=== PATIENT | female | born 1980 | race Hispanic/Latino ===

== ENCOUNTER 2018-08-27 16:13 | Emergency (ER) | payer MEDICARE ==
[2018-08-27 17:44] LABS: APPEARANCE,URINE CLOUDY (CLEAR); BILIRUBIN,URINE NEGATIVE (NEGATIVE); COLOR,URINE ORANGE (YELLOW); GLUCOSE, URINE (UA) NEGATIVE (NEGATIVE); KETONES,URINE NEGATIVE (NEGATIVE); LEUKOCYTE ESTERASE ,URINE TRACE (NEGATIVE); NITRATE,URINE NEGATIVE (NEGATIVE); OCCULT BLOOD,URINE LARGE (NEGATIVE); PROTEIN,URINE TRACE (NEGATIVE); UROBILINOGEN,URINE 0.2 mg/dL (0.2-1.0)
[2018-08-27 18:38] LABS: HCG,QUAL RESULT NEGATIVE (NEGATIVE)
[2018-08-27 18:59] LABS: BACTERIA,URINE Rare /HPF (None Seen); RBC,URINE TNTC /HPF (0-1); SQUAMOUS EPITHELIAL CELL,UR Few /HPF (0-2)
== END 2018-08-27 19:05 | disposition home or self-care (01) ==
LOC: EDH 16:13
DX: L02.416 Cutaneous abscess of left lower limb (principal); L03.116 Cellulitis of left lower limb
CPT/HCPCS: 81001; 81025

== ENCOUNTER 2019-02-08 00:53 | Emergency (ER) | payer MEDICARE ==
[2019-02-08 01:25] LABS: BASOPHILS % (AUTO) 0.4 % (0.0-5.0); BILIRUBIN,URINE Negative (NEGATIVE); COLOR,URINE Yellow (YELLOW); EOSINOPHILS % (AUTO) 2.8 % (0.0-8.0); GLUCOSE, URINE (UA) Negative (NEGATIVE); HEMATOCRIT 39.9 % (36-48); KETONES,URINE Negative (NEGATIVE); LEUKOCYTE ESTERASE ,URINE Negative (NEGATIVE); MEAN CORPUSCULAR HGB CONC 32.6 g/dL (32.0-36.0); MONOCYTES % (AUTO) 6.7 % (3.0-13.0); NEUTROPHILS % (AUTO) 67.1 % (40.0-77.0); NITRATE,URINE Negative (NEGATIVE); NUCLEATED RED BLOOD CELLS 0.1 % (0.0-0.19); OCCULT BLOOD,URINE Negative (NEGATIVE); PLATELET COUNT (AUTO) 248 K/uL (130-400); PROTEIN,URINE Negative (NEGATIVE); RED BLOOD CELL COUNT(AUTO) 4.64 MIL/uL (4.00-5.50); RED CELL DISTRIBUTION WIDTH 14.2 % (11.0-15.5); WHITE BLOOD COUNT (AUTO) 8.1 K/uL (4.8-10.8)
[2019-02-08 01:26] LABS: APPEARANCE,URINE CLEAR (CLEAR)
[2019-02-08 01:27] LABS: HCG,QUAL RESULT NEGATIVE (NEGATIVE)
[2019-02-08] MEDS ORDERED: ONDANSETRON HCL 4 MG/2 ML VIAL ONE (01:39)
[2019-02-08] MEDS ORDERED: KETOROLAC TROMETHAMINE 30MG/ML ONE (01:40)
[2019-02-08] MEDS ORDERED: SODIUM CHLORIDE 0.9% 1000ML 1,000 ML IV ONE (01:40)
[2019-02-08 01:50] LABS: AMPHET/METH SCREEN,URINE NEGATIVE (NEGATIVE); BARBITURATE SCREEN, URINE NEGATIVE (NEGATIVE); BENZODIAZEPINES SCREEN,URINE NEGATIVE (NEGATIVE); CANNABINOID SCREEN,URINE NEGATIVE (NEGATIVE); COCAINE SCREEN,URINE NEGATIVE (NEGATIVE); OPIATE SCREEN,URINE NEGATIVE (NEGATIVE); PHENCYCLIDINE SCREEN,URINE NEGATIVE (NEGATIVE)
[2019-02-08 02:01] LABS: CREATININE 0.8 mg/dL (0.5-1.5); POTASSIUM 4.5 mmol/L (3.5-5.1)
[2019-02-08 02:06] LABS: ALBUMIN 3.4 g/dL (3.5-5.0); BILIRUBIN,TOTAL 0.3 mg/dL (0.2-1.0); TOTAL PROTEIN, SERUM 7.8 g/dL (6.0-8.3)
== END 2019-02-08 04:27 | disposition home or self-care (01) ==
LOC: EDH 00:53
DX: K29.00 Acute gastritis without bleeding (principal); F31.9 Bipolar disorder, unspecified; Z98.51 Tubal ligation status
CPT/HCPCS: 36415; 76705; 80053; 80305; 81003; 81025; 83690; 85025; 96361; 96374; 96375; 99285; J1885; J2405; J7030

== ENCOUNTER 2019-05-13 05:30 | Emergency (ER) | payer MEDICARE ==
[2019-05-13] MEDS ORDERED: LIDOCAINE HCL 2% VISCOUS 15 ML UDCUP ONE (06:07)
[2019-05-13] MEDS ORDERED: MAG HYDROX/AL HYDROX/SIMETH ES 30 ML SUSP UDCUP ONE (06:08)
[2019-05-13] MEDS ORDERED: KETOROLAC TROMETHAMINE 60 MG/2 ML VIAL ONE (06:08)
[2019-05-13] MEDS ORDERED: DEXAMETHASONE 4 MG TAB ONE (06:08)
[2019-05-13] MEDS ORDERED: ALBUTEROL SULFATE 0.083% 2.5 MG/3 ML INH IH ONE (06:14)
[2019-05-13] MEDS ORDERED: AZITHROMYCIN 250 MG TABLET PO ONE (07:18)
== END 2019-05-13 07:59 | disposition home or self-care (01) ==
LOC: EDH 05:30
DX: J20.9 Acute bronchitis, unspecified (principal); F31.9 Bipolar disorder, unspecified; E28.2 Polycystic ovarian syndrome; G47.30 Sleep apnea, unspecified; Z98.51 Tubal ligation status
CPT/HCPCS: 71046; 87804 ×2; 94640; 96372; 99285; J1885; J8540

== ENCOUNTER 2019-06-20 20:28 | Emergency (ER) | payer MEDICARE ==
[2019-06-20] MEDS ORDERED: ACETAMINOPHEN EXTRA STRENGTH 500 MG TABLET ONE (21:15)
[2019-06-20] MEDS ORDERED: SODIUM CHLORIDE 0.9% 1000ML 1,000 ML IV ONE (21:16)
[2019-06-20 21:21] LABS: BASOPHILS % (AUTO) 0.3 % (0.0-5.0); EOSINOPHILS % (AUTO) 1.7 % (0.0-8.0); HEMATOCRIT 37.6 % (36-48); LYMPHOCYTES % (AUTO) 20.6 % (21.0-51.0); MEAN CORPUSCULAR HEMOGLOBIN 27.9 pg (27.0-33.0); MEAN CORPUSCULAR HGB CONC 31.1 g/dL (32.0-36.0); MEAN CORPUSCULAR VOLUME 89.5 fL (79-99); NEUTROPHILS % (AUTO) 70.2 % (40.0-77.0); PLATELET COUNT (AUTO) 291 K/uL (130-400); RED CELL DISTRIBUTION WIDTH 13.2 % (11.0-15.5); WHITE BLOOD COUNT (AUTO) 9.2 K/uL (4.8-10.8)
[2019-06-20 21:30] LABS: CREATININE 0.9 mg/dL (0.5-1.5); POTASSIUM 3.7 mmol/L (3.5-5.1)
[2019-06-20 21:33] LABS: INR 0.97 (0.85-1.15); PARTIAL THROMBOPLASTIN TIME 27.5 SEC (26.3-35.5); PROTHROMBIN TIME 10.2 SEC (9.6-11.6)
[2019-06-20 21:35] LABS: ALBUMIN 3.3 g/dL (3.5-5.0); BILIRUBIN,TOTAL 0.2 mg/dL (0.2-1.0); TOTAL PROTEIN, SERUM 6.8 g/dL (6.0-8.3)
[2019-06-21] MEDS ORDERED: LIDOCAINE HCL-MPF 1% 2ML VIAL ONE (00:29)
[2019-06-21] MEDS ORDERED: CEFTRIAXONE SODIUM 500 MG VIAL ONE (00:29)
[2019-06-21] MEDS ORDERED: ONDANSETRON 4 MG TABLET ONE (00:29)
[2019-06-21] MEDS ORDERED: AZITHROMYCIN 250 MG TABLET PO ONE (00:30)
== END 2019-06-21 00:44 | disposition home or self-care (01) ==
LOC: EDH 20:28
DX: N93.9 Abnormal uterine and vaginal bleeding, unspecified (principal); F31.9 Bipolar disorder, unspecified; G47.30 Sleep apnea, unspecified; Z98.890 Other specified postprocedural states; E28.2 Polycystic ovarian syndrome
CPT/HCPCS: 36415; 76856; 80053; 81025; 85025; 85610; 85730; 96372; 99285; J0696; J3490; J7030; Q0162

== ENCOUNTER 2019-06-30 19:13 | Emergency (ER) | payer MEDICARE ==
[2019-06-30] MEDS ORDERED: ONDANSETRON HCL 4 MG/2 ML VIAL ONE (19:53)
[2019-06-30] MEDS ORDERED: SODIUM CHLORIDE 0.9% 1000ML 1,000 ML IV ONE (19:54)
[2019-06-30 20:15] LABS: BASOPHILS % (AUTO) 0.4 % (0.0-5.0); EOSINOPHILS % (AUTO) 2.2 % (0.0-8.0); HEMATOCRIT 39.3 % (36-48); LYMPHOCYTES % (AUTO) 17.9 % (21.0-51.0); MEAN CORPUSCULAR HEMOGLOBIN 27.9 pg (27.0-33.0); MEAN CORPUSCULAR HGB CONC 30.8 g/dL (32.0-36.0); MEAN CORPUSCULAR VOLUME 90.6 fL (79-99); MONOCYTES % (AUTO) 6.3 % (3.0-13.0); PLATELET COUNT (AUTO) 247 K/uL (130-400); RED BLOOD CELL COUNT(AUTO) 4.34 MIL/uL (4.00-5.50); WHITE BLOOD COUNT (AUTO) 8.1 K/uL (4.8-10.8)
[2019-06-30 20:28] LABS: CREATININE 0.8 mg/dL (0.5-1.5); POTASSIUM 4.1 mmol/L (3.5-5.1)
[2019-06-30 20:31] LABS: APPEARANCE,URINE Clear (CLEAR); BILIRUBIN,URINE Negative (NEGATIVE); COLOR,URINE Yellow (YELLOW); GLUCOSE, URINE (UA) Negative (NEGATIVE); KETONES,URINE Negative (NEGATIVE); LEUKOCYTE ESTERASE ,URINE Negative (NEGATIVE); NITRATE,URINE Negative (NEGATIVE); OCCULT BLOOD,URINE Negative (NEGATIVE); PROTEIN,URINE Negative (NEGATIVE); UROBILINOGEN,URINE 0.2 mg/dL (0.2-1.0)
[2019-06-30 20:32] LABS: ALBUMIN 3.3 g/dL (3.5-5.0); BILIRUBIN,TOTAL 0.3 mg/dL (0.2-1.0); TOTAL PROTEIN, SERUM 7.2 g/dL (6.0-8.3)
== END 2019-06-30 22:23 | disposition home or self-care (01) ==
LOC: EDH 19:13
DX: N83.299 Other ovarian cyst, unspecified side (principal); F31.9 Bipolar disorder, unspecified; G47.30 Sleep apnea, unspecified; Z98.890 Other specified postprocedural states
CPT/HCPCS: 36415; 76830; 80053; 81003; 81025; 83690; 84484; 85025; 87210; 87486; 87797; 93005; 96374; 99285; J2405; J7030

== ENCOUNTER → 2020-04-06 | Outpatient (CLI) | payer OTHER, MEDICARE | END | disposition home or self-care (01) | LOC: SHCH 10:00 | PROVIDERS: ATTEND Internal Medicine Cardiovascular Disease | DX: I87.2 Venous insufficiency (chronic) (peripheral) (principal); K21.9 Gastro-esophageal reflux disease without esophagitis | CPT/HCPCS: 93970 ==

== ENCOUNTER → 2020-04-26 | Outpatient (CLI) | payer OTHER, MEDICARE | END | disposition home or self-care (01) | LOC: RAH 11:33 | PROVIDERS: ATTEND Podiatrist | DX: M65.871 Other synovitis and tenosynovitis, right ankle and foot (principal); M65.872 Other synovitis and tenosynovitis, left ankle and foot; M65.9 Synovitis and tenosynovitis, unspecified | CPT/HCPCS: 73630 ==

== ENCOUNTER → 2020-05-08 | Outpatient (CLI) | payer OTHER, MEDICARE | END | disposition home or self-care (01) | LOC: SHCH 11:30 | PROVIDERS: ATTEND Internal Medicine Cardiovascular Disease | DX: I87.2 Venous insufficiency (chronic) (peripheral) (principal); Z09 Encounter for follow-up examination after completed treatment for conditions other than malignant neoplasm | CPT/HCPCS: 93971 ==

== ENCOUNTER → 2020-05-15 | Outpatient (CLI) | payer OTHER, MEDICARE | END | disposition home or self-care (01) | LOC: SHCH 09:03 | PROVIDERS: ATTEND Internal Medicine Cardiovascular Disease | DX: Z09 Encounter for follow-up examination after completed treatment for conditions other than malignant neoplasm (principal); I87.2 Venous insufficiency (chronic) (peripheral) | CPT/HCPCS: 93971 ==

== ENCOUNTER → 2021-01-01 | Outpatient (CLI) | payer OTHER, MEDICARE | END | disposition home or self-care (01) | LOC: SHCH 13:03 | PROVIDERS: ATTEND Internal Medicine Cardiovascular Disease | DX: Z09 Encounter for follow-up examination after completed treatment for conditions other than malignant neoplasm (principal); I87.2 Venous insufficiency (chronic) (peripheral) | CPT/HCPCS: 93971 ==

== ENCOUNTER → 2021-01-29 | Outpatient (CLI) | payer OTHER, MEDICARE | END | disposition home or self-care (01) | LOC: SHCH 09:36 | PROVIDERS: ATTEND Internal Medicine Cardiovascular Disease | DX: Z09 Encounter for follow-up examination after completed treatment for conditions other than malignant neoplasm (principal); I87.2 Venous insufficiency (chronic) (peripheral) | CPT/HCPCS: 93971 ==

== ENCOUNTER 2021-04-20 14:58 | Emergency (ER) | payer MEDICARE ==
[~2021-04-20] VITALS: Ht 162.6 cm; Wt 108.0 kg
[2021-04-20 15:00] VITALS: BP 160/90
[2021-04-20 15:22] LABS: APPEARANCE,URINE Clear (CLEAR); BILIRUBIN,URINE Negative (NEGATIVE); COLOR,URINE Yellow (YELLOW); GLUCOSE, URINE (UA) Negative (NEGATIVE); KETONES,URINE Trace mg/dL (NEGATIVE); LEUKOCYTE ESTERASE ,URINE Negative (NEGATIVE); NITRATE,URINE Negative (NEGATIVE); OCCULT BLOOD,URINE Negative (NEGATIVE); PH,URINE 5.5 (5.0-8.0); PROTEIN,URINE Negative (NEGATIVE); UROBILINOGEN,URINE 0.2 mg/dL (0.2-1.0)
[2021-04-20] MEDS ORDERED: PHENAZOPYRIDINE HCL 200 MG TABLET PO ONE (15:30)
[2021-04-20] MEDS ORDERED: CEFTRIAXONE 1G VIAL IM ONE (15:30)
[2021-04-20 15:31] LABS: BASOPHILS % (AUTO) 0.2 % (0.0-5.0); EOSINOPHILS % (AUTO) 0.5 % (0.0-8.0); HEMATOCRIT 40.3 % (36-48); LYMPHOCYTES % (AUTO) 9.4 % (21.0-51.0); MEAN CORPUSCULAR HEMOGLOBIN 28.5 pg (27.0-33.0); MEAN CORPUSCULAR HGB CONC 31.5 g/dL (32.0-36.0); MEAN CORPUSCULAR VOLUME 90.6 fL (79-99); NEUTROPHILS % (AUTO) 84.4 % (40.0-77.0); PLATELET COUNT (AUTO) 300 K/uL (130-400); RED BLOOD CELL COUNT(AUTO) 4.45 MIL/uL (4.00-5.50); RED CELL DISTRIBUTION WIDTH 12.6 % (11.0-15.5); WHITE BLOOD COUNT (AUTO) 9.9 K/uL (4.8-10.8)
[2021-04-20] MEDS ORDERED: CEFTRIAXONE 1G VIAL ONE (15:33)
[2021-04-20] MEDS ORDERED: LIDOCAINE HCL-MPF 1% 2ML VIAL ONE (15:33)
[2021-04-20] MEDS ORDERED: PHENAZOPYRIDINE HCL 200 MG TABLET ONE (15:33)
[2021-04-20 15:57] LABS: CREATININE 0.7 mg/dL (0.5-1.5); POTASSIUM 3.8 mmol/L (3.5-5.1)
[2021-04-20 15:59] LABS: ALBUMIN 3.7 g/dL (3.5-5.0); BILIRUBIN,TOTAL 0.4 mg/dL (0.2-1.0)
[2021-04-20] MEDS ORDERED: ACET-2247 PO (16:29)
== END 2021-04-20 16:45 | disposition home or self-care (01) ==
LOC: EDH 14:58
DX: N80.9 Endometriosis, unspecified (principal); N84.0 Polyp of corpus uteri; R10.2 Pelvic and perineal pain; R11.2 Nausea with vomiting, unspecified; E78.00 Pure hypercholesterolemia, unspecified; K21.9 Gastro-esophageal reflux disease without esophagitis; F41.9 Anxiety disorder, unspecified; G47.30 Sleep apnea, unspecified; F31.9 Bipolar disorder, unspecified; E66.9 Obesity, unspecified; Z79.899 Other long term (current) drug therapy; Z68.41 Body mass index [BMI] 40.0-44.9, adult
CPT/HCPCS: 36415; 76856; 80053; 81003; 83690; 84702; 85025; J0696; J3490

== ENCOUNTER → 2022-11-25 | Outpatient (CLI) | payer OTHER, MEDICARE ==
[~2022-11-25] MED LIST: ACET-2247 PO
[2022-11-25 12:25] LABS: BASOPHILS % (AUTO) 0.2 % (0.0-5.0); EOSINOPHILS % (AUTO) 1.4 % (0.0-8.0); HEMATOCRIT 39.4 % (36-48); LYMPHOCYTES % (AUTO) 17.2 % (21.0-51.0); MEAN CORPUSCULAR HEMOGLOBIN 27.9 pg (27.0-33.0); MEAN CORPUSCULAR HGB CONC 30.7 g/dL (32.0-36.0); MONOCYTES % (AUTO) 6.6 % (3.0-13.0); NEUTROPHILS % (AUTO) 74.1 % (40.0-77.0); PLATELET COUNT (AUTO) 271 K/uL (130-400); RED BLOOD CELL COUNT(AUTO) 4.33 MIL/uL (4.00-5.50); RED CELL DISTRIBUTION WIDTH 13.1 % (11.0-15.5); WHITE BLOOD COUNT (AUTO) 8.3 K/uL (4.8-10.8)
[2022-11-25 12:36] LABS: INR 0.93 (0.85-1.15); PROTHROMBIN TIME 9.8 SEC (9.6-11.6)
[2022-11-25 12:38] LABS: PARTIAL THROMBOPLASTIN TIME 29.2 SEC (26.3-35.5)
[2022-11-25 12:40] LABS: CREATININE 0.7 mg/dL (0.5-1.5); POTASSIUM 4.4 mmol/L (3.5-5.1)
== END | disposition home or self-care (01) ==
LOC: LAB 09:17
PROVIDERS: ATTEND Internal Medicine Cardiovascular Disease
DX: I87.2 Venous insufficiency (chronic) (peripheral) (principal); I83.813 Varicose veins of bilateral lower extremities with pain; I87.1 Compression of vein; R60.0 Localized edema
CPT/HCPCS: 36415; 80048; 85025; 85610; 85730

== ENCOUNTER → 2023-03-13 | Outpatient (CLI) | payer OTHER, MEDICARE | END | disposition home or self-care (01) | LOC: SHCH 09:05 | PROVIDERS: ATTEND Internal Medicine Cardiovascular Disease | DX: I51.7 Cardiomegaly (principal); R06.00 Dyspnea, unspecified | CPT/HCPCS: 93306 ==

== ENCOUNTER → 2023-06-04 | Outpatient (CLI) | payer OTHER, MEDICARE | END | disposition home or self-care (01) | LOC: SHCH 08:13 | PROVIDERS: ATTEND Internal Medicine Cardiovascular Disease | DX: I87.2 Venous insufficiency (chronic) (peripheral) (principal) | CPT/HCPCS: 93970 ==

== ENCOUNTER 2023-06-13 15:04 | Emergency (ER) | payer OTHER, MEDICARE ==
[~2023-06-13] VITALS: Ht 162.6 cm; Wt 113.4 kg
[2023-06-13 15:22] VITALS: BP 141/82; PULSE 66; RESP 16
[2023-06-13] MEDS ORDERED: IBUP-2070 PO (19:46)
== END 2023-06-13 20:15 | disposition home or self-care (01) ==
LOC: EDH 15:04
DX: R59.1 Generalized enlarged lymph nodes (principal); D17.0 Benign lipomatous neoplasm of skin and subcutaneous tissue of head, face and neck; F41.9 Anxiety disorder, unspecified; E66.9 Obesity, unspecified; E78.00 Pure hypercholesterolemia, unspecified; F31.9 Bipolar disorder, unspecified; K21.9 Gastro-esophageal reflux disease without esophagitis; Z68.41 Body mass index [BMI] 40.0-44.9, adult
CPT/HCPCS: 99282

== ENCOUNTER → 2023-10-13 | Outpatient (CLI) | payer OTHER, MEDICARE ==
[~2023-10-13] MED LIST changes: +IBUP-2070 PO
== END | disposition home or self-care (01) ==
LOC: SHCH 07:58
PROVIDERS: ATTEND Internal Medicine Cardiovascular Disease
DX: Z09 Encounter for follow-up examination after completed treatment for conditions other than malignant neoplasm (principal); I87.2 Venous insufficiency (chronic) (peripheral)
CPT/HCPCS: 93971

== ENCOUNTER 2024-01-29 22:32 | Emergency (ER) | payer OTHER, MEDICARE ==
[~2024-01-29] VITALS: Ht 162.6 cm; Wt 114.8 kg
[2024-01-29 23:22] LABS: BASOPHILS # (AUTO) 0.02 K/uL (0.00-0.20); BASOPHILS % (AUTO) 0.2 % (0.0-5.0); EOSINOPHILS # (AUTO) 0.18 K/uL (0.00-0.70); HEMATOCRIT 37.3 % (36-48); IMMATURE GRANULOCYTE ABSOLUTE 0.05 K/uL (0-1); LYMPHOCYTES # (AUTO) 2.1 K/uL (1.0-4.8); LYMPHOCYTES % (AUTO) 23.7 % (21.0-51.0); MEAN CORPUSCULAR HEMOGLOBIN 28.4 pg (27.0-33.0); MEAN CORPUSCULAR HGB CONC 31.6 g/dL (32.0-36.0); MEAN CORPUSCULAR VOLUME 89.7 fL (79-99); MONOCYTES # (AUTO) 0.6 K/uL (0.1-1.0); MONOCYTES % (AUTO) 6.6 % (3.0-13.0); NEUTROPHILS # (AUTO) 5.9 K/uL (1.8-7.7); NEUTROPHILS % (AUTO) 66.9 % (40.0-77.0); PLATELET COUNT (AUTO) 291 K/uL (130-400); RED BLOOD CELL COUNT(AUTO) 4.16 MIL/uL (4.00-5.50); WHITE BLOOD COUNT (AUTO) 8.9 K/uL (4.8-10.8)
[2024-01-29 23:29] VITALS: BP 142/76; PULSE 57; RESP 18; O2SAT 100
[2024-01-29 23:33] LABS: CREATININE 0.8 mg/dL (0.5-1.0)
== END 2024-01-30 00:59 | disposition home or self-care (01) ==
LOC: EDH 22:32
DX: M79.89 Other specified soft tissue disorders (principal); M79.661 Pain in right lower leg; M79.662 Pain in left lower leg; E78.00 Pure hypercholesterolemia, unspecified; F31.9 Bipolar disorder, unspecified; Z79.899 Other long term (current) drug therapy; Z98.890 Other specified postprocedural states
CPT/HCPCS: 36415; 80048; 83540; 83550; 85025; 93970

== ENCOUNTER → 2024-02-03 | Outpatient (CLI) | payer OTHER, MEDICARE | END | disposition home or self-care (01) | LOC: SHCH 09:16 | PROVIDERS: ATTEND Internal Medicine Cardiovascular Disease | DX: I87.2 Venous insufficiency (chronic) (peripheral) (principal); I73.9 Peripheral vascular disease, unspecified; I87.1 Compression of vein | CPT/HCPCS: 93925; 93970 ==

== ENCOUNTER 2025-05-17 03:24 | Emergency (ER) | payer OTHER, MEDICARE ==
[~2025-05-17] VITALS: Ht 162.6 cm; Wt 115.7 kg
[~2025-05-17 03:24] MED LIST changes: +IBUP-1492 PO; -IBUP-2070 PO
[2025-05-17 03:52] LABS: RAPID GROUP A STREP negative (NEGATIVE)
[2025-05-17 03:57] LABS: SARS-CoV-2, RNA, NAAT NEGATIVE SARS CoV-2 (NEGATIVE)
[2025-05-17 04:03] LABS: INFLUENZA TYPE A Negative For Type A (NEGATIVE); INFLUENZA TYPE B Negative For Type B (NEGATIVE)
[2025-05-17 04:06] LABS: IMMATURE GRANULOCYTE ABSOLUTE 0.03 K/uL (0-1); NUCLEATED RED BLOOD CELLS 0.0 % (0.0-0.19); PLATELET COUNT (AUTO) 263 K/uL (130-400); RED BLOOD CELL COUNT(AUTO) 4.42 MIL/uL (4.00-5.50); RED CELL DISTRIBUTION WIDTH 12.5 % (11.0-15.5); WHITE BLOOD COUNT (AUTO) 5.5 K/uL (4.8-10.8)
[2025-05-17 04:15] LABS: CREATININE 0.7 mg/dL (0.5-1.0); GLOMERULAR FILTR. RATE CALC 109.0 mL/min (>90); GLUCOSE,RANDOM 126.0 mg/dL (70-105); SODIUM SERUM 136.0 mmol/L (136-145); UREA NITROGEN, BLOOD 12.0 mg/dL (7-18)
--- NOTE | 2025-05-17 04:38 | ERN ---
ED Note History of Present Illness Stated Complaint: C/O COUGH, SORE THROAT, HEADACHE, EARACHES Chief Complaint: Cough Time Seen by MD: 03:29 Dictation: This is a 44-year-old obese female who presented to the emergency room with multiple somatic complaints including sore throat cough, nonspecific headache bilateral earaches all this started about 2 days ago. Denied any fever chills or rigors. No sputum. No dysphagia. Patient does not wear any CPAP on a regular basis. No postnasal drip or nasal drainage. No toothache gum swelling or bleeding. No history of any cavities Temperature 98.3 pulse 79 respirations 20 blood pressure 123/79 with a pulse oximetry of 98% on room air BMI 43.8 Chronic medical problems include anxiety, bipolar disorder, depression, obstructive sleep apnea syndrome noncompliant with CPAP, hypercholesterolemia, coronary artery disease status post stents Allergies: Coded Allergies: No Known Drug Allergies (Verified Allergy, 01/12/13) Home Meds Active Scripts Ibuprofen (Ibuprofen) 600 Mg Tablet, 600 MG PO Q6H PRN for PAIN, #30 TAB Prov:HI SERRANO 06/13/23 Acetaminophen (Tylenol) 325 Mg Tablet, 650 MG PO Q4HPRN, #50 TAB Prov:PEDRO GRANADOS 04/20/21 Past Medical History Past Medical History: Anxiety, Bipolar, Depression, High Cholesterol, Other Additional Past Medical Hx: SLEEP APNEA Surgical History: Other Surgical History Other: CARDIAC STENTS Family History: Negative Social History: Negative, Lives with family RN Note Reviewed/Agreed w/PFSH: Yes Review of System Dictation Constitutional: Negative for fever,chills, and weight loss Eyes: Negative for injury, pain,redness, and discharge ENT: Negative for injury,pain or swelling pain in the ears, sore throat Cardiovascular: Negative for chest pain, palpitations, and edema Respiratory: Negative for shortness of breath, , and wheezing, positive for cough Abdomen/GI: Negative for abdominal pain, nausea, vomiting, diarrhea, and constipation Back: Negative for injury and pain : Negative for injury, bleeding and discharge MS/Extremity: Negative for injury and deformity Skin: Negative for rash, and discoloration Neuro: Negative for headache, weakness, numbness, tingling, and seizure Psych: Negative for suicide ideation, homicidal ideation, and hallucinations Initial Vital Sign VS Vital Signs Date Time Temp Pulse Resp B/P (MAP) Pulse Ox O2 Delivery O2 Flow Rate FiO2 05/17/25 03:26 98.2 79 20 123/79 98 Room Air 05/17/25 04:12 0 21 Physical Exam Dictation General: awake, alert, NAD morbidly obese female Head/Face: Normocephalic, atraumatic Eyes: PERRL, EOMI, vision at baseline ENT: oral cavity clear no exudate in the posterior oropharynx, TMs clear, no signs of infection -teeth and gums in excellent condition tenderness in the TMJ bilaterally, ear canals have lot of cerumen. No evidence of any stones in the salivary gland ducts Neck: Trachea midline, supple, no nuchal rigidity Cardiovascular: RRR, normal S1/S2, No MRGs, no JVD Respiratory: CTAB, no respiratory distress, No rales or wheezes Abdomen: Soft, non-tender, non-distended, normal bowel sounds, no guarding or rebound. Skin: Warm, dry, normal turgor, no rash MS/Extremity: Pulses equal, no cyanosis, neurovascular intact, FROM Neuro: COAx4, GCS 15, strength 5/5, CN 2-12 intact, normal cerebellar exam, normal gait, Psych: Normal behavior, mood, and affect normal Extremities-trace edema without any palpable cords, Homans sign is negative Results (Laboratory/Radiology) Laboratory/Radiology Laboratory Tests Test 05/17/25 03:35 05/17/25 04:00 Influenza Type A Antigen Negative For Type A Influenza Type B Antigen Negative For Type B SARS-CoV-2, RNA, NAAT NEGATIVE SARS CoV-2 Group A Streptococcus Rapid negative (NEGATIVE) White Blood Count 5.5 K/uL (4.8-10.8) Red Blood Count 4.42 MIL/uL (4.00-5.50) Hemoglobin 12.5 g/dL (12.0-16.0) Hematocrit 40.2 % (36-48) Mean Corpuscular Volume 91.0 fL (79-99) Mean Corpuscular Hemoglobin 28.3 pg (27.0-33.0) Mean Corpuscular Hemoglobin Concent 31.1 g/dL (32.0-36.0) L Red Cell Distribution Width 12.5 % (11.0-15.5) Platelet Count 263 K/uL (130-400) Mean Platelet Volume 10.0 fL (7.5-10.5) Immature Granulocyte % (Auto) 0.5 % (0-1) Neutrophils (%) (Auto) 60.7 % (40.0-77.0) Lymphocytes (%) (Auto) 27.6 % (21.0-51.0) Monocytes (%) (Auto) 8.9 % (3.0-13.0) Eosinophils (%) (Auto) 1.8 % (0.0-8.0) Basophils (%) (Auto) 0.5 % (0.0-5.0) Neutrophils # (Auto) 3.3 K/uL (1.8-7.7) Lymphocytes # (Auto) 1.5 K/uL (1.0-4.8) Monocytes # (Auto) 0.5 K/uL (0.1-1.0) Eosinophils # (Auto) 0.10 K/uL (0.00-0.70) Basophils # (Auto) 0.03 K/uL (0.00-0.20) Absolute Immature Granulocyte (auto 0.03 K/uL (0-1) Nucleated Red Blood Cells 0.0 % (0.0-0.19) Sodium Level 136 mmol/L (136-145) Potassium Level 4.4 mmol/L (3.5-5.1) Chloride Level 100 mmol/L (101-111) L Carbon Dioxide Level 29 mmol/L (21-32) Blood Urea Nitrogen 12 mg/dL (7-18) Creatinine 0.7 mg/dL (0.5-1.0) Glomerular Filtration Rate Calc 109 mL/min (>90) Random Glucose 126 mg/dL (70-105) H Total Calcium 8.6 mg/dL (8.5-10.1) Labs Reviewed?: Yes ED Course ED Course Orders Procedure Category Date Status Time Covid Rna Naat LAB 05/17/25 Complete 03:36 Influenza Type A & B, LAB 05/17/25 Complete Rapid 03:36 Rapid (Group A Strep) LAB 05/17/25 Complete 03:36 Cbc With Differential LAB 05/17/25 Complete 03:38 Basic Metabolic Panel LAB 05/17/25 Complete 03:38 ,Urine Test LAB 05/17/25 Logged 03:38 Urinalysis Profile LAB 05/17/25 Logged 03:38 Ketorolac PHA 05/17/25 Complete Tromethamine 30mg/Ml 05:00 Current Medications Medications (Trade) Dose Ordered Sig/Neetu Route PRN Reason Start Time Stop Time Status Last Admin Dose Admin Ketorolac Tromethamine (toRADol) 30 mg ONCE ONCE IVP 05/17/25 05:00 05/17/25 05:01 DC 05/17/25 04:56 Vital Signs Date Time Temp Pulse Resp B/P (MAP) Pulse Ox O2 Delivery O2 Flow Rate FiO2 05/17/25 04:12 98.8 75 18 140/68 Room Air* 0 21 05/17/25 03:26 98.2 79 20 123/79 98 Room Air Medical Decision Making MDM Differential diagnosis: Influenza, COVID, RSV, streptococcal pharyngitis, otitis media, acute viral syndrome, TMJ arthralgia, parotitis This is a 44-year-old obese female who presented to the emergency room with multiple somatic complaints including sore throat cough, nonspecific headache bilateral earaches all this started about 2 days ago. Denied any fever chills or rigors. No sputum. No dysphagia. Patient does not wear any CPAP on a regular basis. No postnasal drip or nasal drainage. No toothache gum swelling or bleeding. No history of any cavities Temperature 98.3 pulse 79 respirations 20 blood pressure 123/79 with a pulse oximetry of 98% on room air BMI 43.8 Chronic medical problems include anxiety, bipolar disorder, depression, obstructive sleep apnea syndrome noncompliant with CPAP, hypercholesterolemia, coronary artery disease status post stents 4:30 a.m. labs reviewed CBC is with a normal limits. BNP 7 is also relatively normal. Nasopharyngeal swabs for influenza COVID and strep were all negative. I updated the patient on the test results and explained to her that she may still have a viral pharyngitis. She does not have any maxillary or frontal tenderness. TMJs are tender to palpation and I do believe that the earache is probably referred pain from the TMJ is. Patient does not recall or is not aware off bruxism. We will give a trial of nonsteroidal anti-inflammatory agent and encourage her to drink plenty of fluids and take [id number] pain medications. Rationale: Tests considered and ordered secondary to shared decision making include: Labs Previous outside records reviewed: Old ER visits. Risk of complication and/or morbidity or mortality of patient management: None Medications-Per medication reconciliation Need for hospitalization: Patient does not meet criteria for hospitalization. Need for emergency major/minor surgery: No There are no social concerns with this patient. Prescription drug management Prescriptions will include symptomatic care Patient's prior external medical records from other ER visits were reviewed by me as indicated. Prior testing and results from previous visits were reviewed. Prior tests were taken into account with medical decision making and resource utilization, independent historian/historians were used to obtain complete medical history. I independently interpreted the test that were performed, results were reviewed by me and considered findings on radiology if ordered. Medical management and examination interpretation discussions were had by me with other qualified healthcare professionals as indicated for the patient's care. DX & DISP Disposition: Discharge Departure Impression: Primary Impression: Pharyngitis with viral syndrome Additional Impression: Temporomandibular joint (TMJ) pain Condition: Stable Additional Instructions: Patient and the caregiver have been informed of all the diagnostic tests and the imaging conducted during the today's visit to the emergency room and has verbalized understanding of the results I have personally reviewed and interpreted all diagnostic exams performed here in the ER today as well as the vital signs documented by the nursing staff. The patient is now being discharged to home and should follow up with the primary care physician or the specialist as directed by the ER staff. Referrals: RAMILA DIAZ MD (PCP) ANDREWS BELL MD May 17, 2025 04:38
[2025-05-17 05:36] LABS: HCG,QUALITATIVE URINE NEGATIVE (NEGATIVE)
[2025-05-17 05:50] LABS: ADD UA MICROSCOPIC NO; APPEARANCE,URINE CLEAR (CLEAR); GLUCOSE, URINE (UA) NEGATIVE (NEGATIVE); LEUKOCYTE ESTERASE ,URINE NEGATIVE Leu/uL (NEGATIVE); NITRATE,URINE NEGATIVE (NEGATIVE); OCCULT BLOOD,URINE NEGATIVE (NEGATIVE)
[2025-05-17 06:35] VITALS: BP 123/60; PULSE 72; RESP 20; TEMP 98.8; O2SAT 98
== END 2025-05-17 06:59 | disposition home or self-care (01) ==
LOC: EDH 03:24
DX: J02.8 Acute pharyngitis due to other specified organisms (principal); B97.89 Other viral agents as the cause of diseases classified elsewhere; M26.629 Arthralgia of temporomandibular joint, unspecified side; E78.00 Pure hypercholesterolemia, unspecified; F31.9 Bipolar disorder, unspecified; G47.30 Sleep apnea, unspecified; Z20.822 Contact with and (suspected) exposure to COVID-19; Z95.5 Presence of coronary angioplasty implant and graft
CPT/HCPCS: 99283; 96374; 87635; 80048; 85025; 87880; 87804 ×2; 81003; 81025; 36415; J1885